=== PATIENT | male | born 1985 | race Asian ===

== ENCOUNTER 2016-12-18 09:52 | Emergency (ER) | payer OTHER ==
[2016-12-18] MEDS ORDERED: ASPIRIN CHEW 81 MG TABLET PO STA (10:19)
[2016-12-18] MEDS ORDERED: ASPIRIN CHEW 81 MG TABLET ONE (10:20)
== END 2016-12-18 11:17 | disposition home or self-care (01) ==
DX: R07.89 Other chest pain (principal)
CPT/HCPCS: 36415; 71010; 80053; 83690; 84484; 85025; 85379; 93005; 93010; 99283; 99284; A9270

== ENCOUNTER 2017-01-09 09:05 | Outpatient (CLI) | payer OTHER | END 2017-01-09 09:06 | disposition home or self-care (01) | DX: Z00.00 Encounter for general adult medical examination without abnormal findings (principal); E11.65 Type 2 diabetes mellitus with hyperglycemia; E78.2 Mixed hyperlipidemia; Z79.899 Other long term (current) drug therapy ==

== ENCOUNTER 2020-11-16 18:42 | Emergency (ER) | payer BC, OTHER ==
[2020-11-16 18:51] VITALS: BP 145/106
[2020-11-16] MEDS ORDERED: TETANUS/DIPHTHERIA/PERTUSSIS 0.5 ML SYRINGE IM ONE (19:15)
--- NOTE | 2020-11-16 19:16 | ED Physician Documentation ---
History of Present Illness - Stated complaint Stated Complaint: LT FINGER LAC - Chief complaint Chief Complaint: Laceration - History obtained from History obtained from: Patient - History of Present Illness Timing: Today Pain level max: 0 Pain level now: 0 - Additonal information Additional information: Patient with a left index finger laceration while cooking today. Was unable to stop the bleeding at home. Unknown last tetanus shot. Patient is right-handed. Nothing makes it better or worse. Review of Systems Constitutional: denies: Fever Neurologic: denies: Numbness PD PAST MEDICAL HISTORY - Past Medical History Past Medical History: Yes Cardiovascular: None Respiratory: None Neuro: None Endocrine/Autoimmune: None GI: None : None HEENT: None Psych: None Musculoskeletal: None Derm: None - Past Surgical History Past Surgical History: No - Present Medications Home Medications: Ambulatory Orders Medication Instructions Recorded Confirmed No Known Home Medications 12/18/16 11/16/20 - Allergies Allergies/Adverse Reactions: Allergies Allergy/AdvReac Type Severity Reaction Status Date / Time No Known Drug Allergies Allergy Verified 11/16/20 18:51 - Social History Does the pt smoke?: No Smoking Status: Never smoker Does the pt drink ETOH?: No Does the pt have substance abuse?: No - Immunizations Immunizations are current?: No Immunizations: TDAP >10years/unknown - POLST Patient has POLST: No PD ED PE NORMAL - Vitals Vital signs reviewed: Yes - General General: Alert and oriented X 3, No acute distress - HEENT HEENT: Moist mucous membranes - Derm Derm: Warm and dry - Neuro Neuro: Alert and oriented X 3 - Psych Psych: Normal mood, Normal affect PD ED PE EXPANDED - Extremities CAS UE/Hands Visual: 1 - laceration (0.5cm, nvi) Results - Vitals Vitals: Vital Signs - 24 hr 11/16/20 11/16/20 11/16/20 18:46 19:10 19:25 Temperature 37.1 C Heart Rate 112 H Respiratory 18 16 16 Rate Blood Pressure 145/106 H O2 Saturation 100 Oxygen O2 Source Room air Procedures - Laceration (location) L index finger Length in cm: 0.5 Wound type: Irregular, Into subcut fat, Clean Neurovascular status: Sensory intact, Motor intact, Vascular intact Tendon involvement: Tendon intact Wound Preparation: Irrigated copiously NS Skin layer closure: Dermabond (T ring system) Other: Patient tolerated well, No complications, Neurovascular intact Complexity: Simple PD MEDICAL DECISION MAKING - ED course Complexity details: considered differential, d/w patient ED course: 35-year-old male with a finger laceration. Repaired in the emergency department. Warnings of infection and instructions on wound care given at bedside. Also counseled on how to minimize scarring. Patient counseled regarding signs and symptoms for which I believe and urgent re-evaluation would be necessary. Patient with good understanding of and agreement to plan and is comfortable going home at this time This document was made in part using voice recognition software. While efforts are made to proofread this document, sound alike and grammatical errors may occur. Departure - Departure Disposition: 01 Home, Self Care Clinical Impression: Finger laceration Qualifiers: Encounter type: initial encounter Finger: index finger Damage to nail status: without damage Foreign body presence: without foreign body Laterality: left Qualified Code(s): S61.211A - Laceration without foreign body of left index finger without damage to nail, initial encounter Condition: Good Instructions: ED Laceration Ext Skin Glue Follow-Up: your,doctor as needed [Other] Comments: Keep the wound clean. The bandaging should fall off on its own in about a week. Return if you worsen. You can use the finger splint as needed to help prevent any additional trauma. Return if you notice redness, swelling or drainage from the wound. You were given a Tdap shot tonight Discharge Date/Time: 11/16/20 19:25
== END 2020-11-16 19:25 | disposition home or self-care (01) ==
LOC: ED 18:42
DX: S61.211A Laceration without foreign body of left index finger without damage to nail, initial encounter (principal); W26.0XXA Contact with knife, initial encounter; Y93.89 Activity, other specified; Y92.009 Unspecified place in unspecified non-institutional (private) residence as the place of occurrence of the external cause; Z23 Encounter for immunization
CPT/HCPCS: 12001; 90471; 99281; 99282

== ENCOUNTER 2022-10-04 09:46 | Outpatient (CLI) | payer BC ==
[2022-10-04 12:12] LABS: BASOPHILS % (AUTO) 0.2 %; EOSINOPHILS % (AUTO) 0.5 %; HCT - HEMATOCRIT 47.2 % (42.0-52.0); HGB - HEMOGLOBIN 15.4 g/dL (14.0-18.0); LYMPHOCYTES # (AUTO) 1.7 10^3/uL (1.5-3.5); MEAN CORPUSCULAR HEMOGLOBIN 28.5 pg (27.0-31.0); MEAN CORPUSCULAR HGB CONC 32.6 g/dL (32.0-36.0); MEAN CORPUSCULAR VOLUME 87.4 fL (80.0-94.0); MEAN PLATELET VOLUME 10.8 fL (7.4-11.4); MONOCYTES # (AUTO) 0.2 10^3/uL (0.0-1.0); MONOCYTES % (AUTO) 5.2 %; NEUTROPHILS # (AUTO) 2.3 10^3/uL (1.5-6.6); NEUTROPHILS % (AUTO) 53.9 %; PLT - PLATELET COUNT 258 10^3/uL (130-450); WHITE BLOOD COUNT 4.2 x10^3/uL (4.8-10.8)
[2022-10-04 12:42] LABS: ALBUMIN 5.3 g/dL (3.2-5.5); ALBUMIN/GLOBULIN RATIO 1.8 (1.0-2.2); ALKALINE PHOSPHATASE 45 IU/L (42-121); ALT ALANINE AMINOTRANSFERASE 27 IU/L (10-60); AST ASPARTATE AMINOTRANSFERASE 20 IU/L (10-42); BILIRUBIN,TOTAL 0.7 mg/dL (0.2-1.0); BUN - BLOOD UREA NITROGEN 11 mg/dL (6-20); CALCIUM 10.1 mg/dL (8.5-10.3); CARBON DIOXIDE - CO2 29 mmol/L (21-32); CHLORIDE 102 mmol/L (101-111); CHOL/HDL RATIO 4.6 (<5.0); CHOLESTEROL 268 mg/dL; CREATININE 0.9 mg/dL (0.6-1.2); GFR - MDRD 94 (>89); GLUCOSE 116 mg/dL (70-100); HDL CHOLESTEROL 58 mg/dL; LDL CHOLESTEROL,CALCULATED 175 mg/dL; SODIUM 142 mmol/L (135-145); TOTAL PROTEIN 8.3 g/dL (6.7-8.2); TRIGLYCERIDES 173 mg/dL; VLDL CHOLESTEROL 35 mg/dL
== END 2022-10-04 09:47 | disposition home or self-care (01) ==
LOC: LAB.N 09:46
PROVIDERS: ATTEND Physician Assistant
DX: L20.9 Atopic dermatitis, unspecified (principal); Z13.220 Encounter for screening for lipoid disorders
CPT/HCPCS: 36415; 80053; 80061; 83721; 85025

== ENCOUNTER 2023-03-26 17:32 | Outpatient (CLI) | payer BC ==
[2023-03-26 18:33] LABS: RHEUMATOID FACTOR NEGATIVE (Negative)
[2023-03-28 06:10] LABS: RPR Non Reactive (Non Reactive)
[2023-03-28 17:08] LABS: ANTI-DNA (DS) AB QN 1 IU/mL (0-9); CENTROMERE B ANTIBODIES <0.2 AI (0.0-0.9); CHROMATIN ANTIBODIES <0.2 AI (0.0-0.9); JO-1 AB <0.2 AI (0.0-0.9); RIBOSOMAL P ANTIBODIES <0.2 AI (0.0-0.9); RNP ANTIBODIES 0.3 AI (0.0-0.9); SCLERODERMA-70 ANTIBODIES <0.2 AI (0.0-0.9); SJOGREN'S ANTI-SS-A <0.2 AI (0.0-0.9); SJOGREN'S ANTI-SS-B <0.2 AI (0.0-0.9); SMITH ANTIBODIES <0.2 AI (0.0-0.9); SMITH/RNP ANTIBODIES <0.2 AI (0.0-0.9); TREPONEMA PALLIDUM ANTIBODIES Non Reactive (Non Reactive)
== END 2023-03-26 17:33 | disposition home or self-care (01) ==
LOC: LAB 17:32
PROVIDERS: ATTEND Ophthalmology
DX: H20.00 Unspecified acute and subacute iridocyclitis (principal)
CPT/HCPCS: 36415; 81374; 81599; 83516; 85549; 86225; 86235; 86430; 86592; 86780